=== PATIENT | male | born 1965 | race Asian ===

== ENCOUNTER 2020-05-31 12:59 | Emergency (ER) | payer OTHER ==
[~2020-05-31] VITALS: Ht 172.7 cm; Wt 100.0 kg
[2020-05-31 13:08] VITALS: BP 126/81
[2020-05-31] MEDS ORDERED: ibuprofen 200mg tablet PO ONE (16:30)
== END 2020-05-31 16:41 | disposition home or self-care (01) ==
LOC: ER 13:01
DX: R07.89 Other chest pain (principal); M54.9 Dorsalgia, unspecified; I10 Essential (primary) hypertension
CPT/HCPCS: 71045; 93005; 99283